=== PATIENT | female | born 1980 | race African-American/Black ===

== ENCOUNTER 2017-06-13 00:55 | Emergency (ER) | payer OTHER ==
[2017-06-13 01:47] LABS: Bilirubin Negative (Negative); Blood, Urine Moderate (Negative); Clarity CLEAR (Clear); Glucose, Urine (Dipstick) Negative (Negative); Leukocyte Negative (Negative); Nitrite Negative (Negative); Protein, Urine (Dipstick) Negative (Neg-Trace); Specific Gravity, Urine 1.029 (1.002-1.036); Urobilinogen 0.2 mg/dL (0.2-1.0)
[2017-06-13 01:49] LABS: Bacteria/HPF None Seen HPF (None Seen); Hyaline Casts/LPF 0-3 HYALINE CAST LPF (0-3 Hyaline); Squamous Epithelial 0-3 HPF (0-3); WBC/HPF 0-3 HPF (0-3)
[2017-06-13 01:50] LABS: #Eosinphils 0.2 thou/uL (0.0-0.7); #Lymphocytes 1.9 thou/uL (1.20-3.40); #Monocytes 0.7 thou/uL (0.11-0.59); #Neutrophils 8.7 thou/uL (1.40-6.50); %Basophils 0.4 % (0.0-1.0); %Eosinophils 1.5 % (0.0-10.0); %Lymphocytes 16.7 % (21.0-51.0); %Monocytes 6.1 % (0.0-10.0); %Neutrophils 75.3 % (42.0-75.0); Hemoglobin 12.2 g/dL (12.0-16.0); Mean Corpuscular HGB CONC 32.6 g/dL (32.0-36.0); Mean Corpuscular Hemoglobin 27.2 pg (27.0-31.0); Mean Corpuscular Volume 83.4 fl (81.0-99.0); Mean Platelet Volume 7.8 fL (7.4-10.4); Platelet Count 250 thou/uL (130-400); RBC Distribution Width 12.2 % (11.5-14.5); Red Blood Cell (RBC) Count 4.49 mill/uL (4.20-5.40); White Blood Cell (WBC) Count 11.5 thou/uL (4.8-10.8)
[2017-06-13 01:53] LABS: Pregnancy Test - Urine (BHCG) Negative (Negative); Pregu Control Background? CLEAR/WHITE (CLR/WHITE); Pregu Control Bar Appear? YES (CONTROL BAR); Specific Gravity 1.029 (1.002-1.036)
[2017-06-13 02:02] LABS: ALT (SGPT) 16 U/L (8-55); AST (SGOT) 21 U/L (5-34); Albumin 4.3 g/dL (3.5-5.0); Alkaline Phosphatase 72 U/L (40-150); Anion Gap 13 mmol/L (10-20); BUN (Urea Nitrogen) 13 mg/dL (7.0-18.7); Bilirubin, Total 0.4 mg/dL (0.2-1.2); CK (CPK) 229 U/L (29-168); Calc. Creatinine Clearance 0 mL/min (70-130); Calcium 10.1 mg/dL (7.8-10.44); Carbon Dioxide 25 mmol/L (22-29); Chloride 103 mmol/L (98-107); Estimated GFR-MDRD 84; Globulin 3.5 g/dL (2.4-3.5); Glucose 173 mg/dL (70-105); Lipase 28 U/L (8-78); Potassium 3.7 mmol/L (3.5-5.1); Protein, Total 7.8 g/dL (6.0-8.3); Sodium 137 mmol/L (136-145)
[2017-06-13] MEDS ORDERED: Lidocaine Viscous Sol 2% 15 ml UD Cup ONE (03:07)
[2017-06-13] MEDS ORDERED: Famotidine/PF 20 mg/2ml Vial ONE (03:07)
[2017-06-13] MEDS ORDERED: Mag-Al 1200 mg/1200 mg/30 ML UDCUP ONE (03:07)
[2017-06-13] MEDS ORDERED: Ondansetron HCl/PF 4 MG/2 ML Vial ONE (03:07)
--- NOTE | 2017-06-13 08:25 | RAD ---
TWO VIEWS OF THE ABDOMEN AND UPRIGHT VIEW OF THE CHEST: COMPARISON: None. HISTORY: Epigastric abdominal pain with nausea and vomiting. FINDINGS: Supine and upright views of the abdomen and upright view of the chest show a nonspecific, nonobstruct ed bowel gas pattern. There are 2 lucent structures in the pelvis which may represent 2 separate lim jessica. Air is seen in the transverse colon. No free air or air fluid levels are seen on upright exam ination. The cardiomediastinal silhouette is normal in size. There is no evidence of consolidation, mass, or pleural effusion. IMPRESSION: 1. Nonobstructed bowel gas pattern. 2. Possible double tampon in the pelvis. Please correlate with physical examination. POS: [facility]
== END 2017-06-13 04:32 | disposition home or self-care (01) ==
LOC: ERS 00:55
DX: K29.70 Gastritis, unspecified, without bleeding (principal); F45.8 Other somatoform disorders; J45.909 Unspecified asthma, uncomplicated
CPT/HCPCS: 74022; 80053; 81003; 81015; 81025; 82150; 82550; 83690; 85025; 96361; 96374; 96375; J2405; S0028

== ENCOUNTER 2017-06-25 10:59 | Outpatient (CLI) | payer OTHER | END 2017-06-25 11:00 | disposition home or self-care (01) | LOC: BICMAMMO 10:59 | PROVIDERS: ATTEND Family Medicine | DX: Z12.31 Encounter for screening mammogram for malignant neoplasm of breast (principal) | CPT/HCPCS: 77063; 77067 ==

== ENCOUNTER 2017-10-14 16:22 | Outpatient (CLI) | payer OTHER | END 2017-10-14 16:23 | disposition home or self-care (01) | LOC: BICRAD 16:22 | PROVIDERS: ATTEND Family Medicine | DX: M17.11 Unilateral primary osteoarthritis, right knee (principal) ==

== ENCOUNTER 2020-09-12 09:57 | Outpatient (CLI) | payer OTHER | END 2020-09-12 09:58 | disposition home or self-care (01) | LOC: BICMAMMO 09:57 | PROVIDERS: ATTEND Family Medicine | DX: Z12.31 Encounter for screening mammogram for malignant neoplasm of breast (principal); D25.9 Leiomyoma of uterus, unspecified; R93.89 Abnormal findings on diagnostic imaging of other specified body structures; N83.291 Other ovarian cyst, right side | CPT/HCPCS: 76856; 77067; 93976 ==